=== PATIENT | female | born 1985 | race Caucasian/White ===

== ENCOUNTER 2017-01-10 17:21 | Inpatient (IN) | payer MEDICAID, OTHER ==
[~2017-01-10] VITALS: Ht 167.6 cm; Wt 65.5 kg
[2017-01-10 17:51] VITALS: BP 155/108; PULSE 82; RESP 18; O2SAT 100
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
[2017-01-10 19:25] LABS: BASOPHILS % (AUTO) 0.2 % (0-3); EOSINOPHILS % (AUTO) 0.4 % (0-5); MONOCYTES % (AUTO) 2.6 % (4-12); Mean Corpuscular Hemoglobin 31.3 pg (27.0-35.0); Mean Corpuscular Volume 92.7 fL (81-100); NEUTROPHILS % (AUTO) 84.8 % (40-74); Platelet Count 169 bil/L (150-400)
[2017-01-10] MEDS ORDERED: Midazolam 5 mg/mL 10 mL Inj IM ONE (20:11)
[2017-01-10] MEDS ORDERED: Haloperidol 5 mg/mL Inj IVPUSH ONE (20:45)
[2017-01-10] MEDS ORDERED: ACETYLCYSTEINE IV ONE ×2 (20:55→22:30)
[2017-01-10] MEDS ORDERED: DEXTROSE 5% IV ONE ×2 (20:55→22:30)
[2017-01-10] MEDS ORDERED: Acetadote Dosing per Pharmacy XX ONE (20:55)
[2017-01-10 21:33] VITALS: BP 119/83; PULSE 62; RESP 20; O2SAT 100
[2017-01-10] MEDS ORDERED: Ondansetron 2 mg/mL 2 mL Inj ONE (22:02)
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
[2017-01-10] MEDS ORDERED: Ondansetron 2 mg/mL 2 mL Inj IVPUSH PRN (23:05)
[2017-01-10] MEDS ORDERED: Alum-Mag Hydrox-Simeth 30 mL Suspension PO PRN (23:05)
[2017-01-10] MEDS ORDERED: Polyethylene Glycol (PEG) 17 Gm Powder PO PRN (23:05)
[2017-01-10 23:28] VITALS: BP 146/78; PULSE 67; RESP 19; O2SAT 99
--- NOTE | 2017-01-10 23:30 | NUR ---
Admission to [facility] Room 2010 Pt arrived on a gurney with a sitter at approximately 2330. Pt was able to transfer self from gurney to the bed with a steady gait and no c/o light headedness, dizziness, or weakness.
[2017-01-10 23:31] VITALS: PULSE 66
[2017-01-11 03:28] VITALS: BP 127/73; PULSE 58; RESP 14; O2SAT 100
[2017-01-11 04:59] LABS: BASOPHILS % (AUTO) 0.3 % (0-3); EOSINOPHILS % (AUTO) 0.5 % (0-5); MONOCYTES % (AUTO) 6.4 % (4-12); Mean Corpuscular Hemoglobin 30.9 pg (27.0-35.0); Mean Corpuscular Volume 93.1 fL (81-100); NEUTROPHILS % (AUTO) 67.3 % (40-74); Platelet Count 160 bil/L (150-400)
[2017-01-11] MEDS ORDERED: DEXTROSE 5% IV ONE (05:00)
[2017-01-11] MEDS ORDERED: ACETYLCYSTEINE IV ONE (05:00)
[2017-01-11 05:20] LABS: Magnesium 1.7 mg/dL (1.6-2.6); Phosphorus 2.9 mg/dL (2.5-4.9)
[2017-01-11 05:31] LABS: INR 1.13 ratio
[2017-01-11 06:05] VITALS: BP 119/75; PULSE 47; RESP 16; O2SAT 98
[2017-01-11] MEDS ORDERED: KCl 20 mEq/100 mL(CENTRAL) 20 MEQ in IV Premix 1 EACH IV ONE (06:45)
[2017-01-11 08:09] VITALS: BP 113/72; PULSE 46; RESP 18
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
[2017-01-11] MEDS ORDERED: Potassium Chloride Inj 20 MEQ in Dextrose 5% 250 ML IV ONE (08:35)
[2017-01-11 09:00] VITALS: PULSE 47
[2017-01-11] MEDS ORDERED: KCl 40 mEq/D5W 500 mL 40 MEQ in IV Premix 1 EACH IV ONE (10:35)
[2017-01-11 11:28] VITALS: BP 113/72; PULSE 46; RESP 16; O2SAT 98
[2017-01-11 15:30] VITALS: BP 120/82; PULSE 47; RESP 20; O2SAT 99
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
--- NOTE | 2017-01-11 15:51 | NUR ---
Social Work: Initial Assessment/Discharge D: Per EMR review, pt is a 31 year old female admited for acetaminophen overdose. Pt is [facility] HO insurance with [facility]; pt denies any LTC or VA benefits. PCP is through the [facility]. NOK is Barrett Dalton, pt's spouse, . Readmit score not entered. Advanced directives not completed- pt declined info from [employer]. Pt has been evaluated by psychiatry for an intentional overdose. SUPERVISOR [employer] received notification from plant senior manager that Dr. Cueva with psychiatry has cleared the patient to discharge home and to follow up with outpatient MH counseling. SUPERVISOR [employer] MILL met with the patient at bedside. Social work/dcp role explained, contact information and discharge planning checklist provided. Pt states she lives on [address] with her spouse and two children. The patient states that she is ready to discharge and denies any current suicidal ideation and states that her attempt was "stupid on my part." Pt mildly agitated during assessment and very eager to leave. Pt declined to include her significant other in discharge conversations and safety planning stating "its fine, I don't want to worry him about any of this." SUPERVISOR FEED MILL discussed topic of safety planning specifically seeing an outpatient provider for MH counseling as recommended by psychiatry. Pt states that she has never done counseling before but states that she intends to go to the [facility] to do so- the patient declined to have SUPERVISOR FE[employer] MILL assist her in making this appointment. SUPERVISOR FEED MILL provided her with a copy of the outpatient MH providers in [facility] and the information to Patient Access for [facility]/Medicaid. She understands that she will need to call or complete the online form before an appointment can be scheduled. Pt understands to return to the ED or nearest hospital if she begins to feel suicidal again; pt states she understands and will do this. Pt provided with the 24/ crisis line phone number. Pt denies any other needs that would help her to keep herself safe. A: Pt who is I at baseline. P: Anticipate pt to discharge home via POV and to follow up at the [facility] for outpatient mental health counseling. THERESA Marroquin
--- NOTE | 2017-01-11 16:22 | NUR ---
Discharge, potassium, safety plan Pt. insisted on discharge as soon as possible even though IV potassium was still infusing. Last potassium level was 3.3. Dr. Elliott was notified of pt.'s wish to be discharged as soon as possible without getting the full dose of IV potassium. Dr. Elliott advised that pt. should take OTC PO Potassium for 1 week after discharge. Pt. verbalized understanding. Discussed safety plan with pt. and family. Encourage pt. to use crisis hotline and resources given by [employer] if she needed help. Pt. verbalized that she will set up outpatient appointments with psych. and primary care provider. She denied suicidal ideation.
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
== END 2017-01-11 16:19 | disposition home or self-care (01) | DRG 918 ==
LOC: EDBD 17:21 → EDUNIT# 17:21 → SED 19:10 → PCC 22:16
PROVIDERS: ADMIT Hospitalist; ATTEND Internal Medicine
DX: T39.1X2A Poisoning by 4-Aminophenol derivatives, intentional self-harm, initial encounter (principal); S09.90XA Unspecified injury of head, initial encounter; F32.9 Major depressive disorder, single episode, unspecified; F43.23 Adjustment disorder with mixed anxiety and depressed mood; E87.6 Hypokalemia; Y35.93XA Legal intervention, means unspecified, suspect injured, initial encounter

== ENCOUNTER 2017-01-12 17:49 | Emergency (ER) | payer OTHER ==
[~2017-01-12] VITALS: Ht 167.6 cm; Wt 59.1 kg
[2017-01-12 18:01] VITALS: BP 145/79; PULSE 55; RESP 16; O2SAT 100
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
--- NOTE | 2017-01-12 22:01 | DRSVH ---
PROCEDURE: CT BRAIN WITHOUT CONTRAST ([id number]) INDICATIONS: headache, head trauma TECHNIQUE: Noncontrast 4.5 mm thick angled axial sections acquired from the foramen magnum to the vertex, with c oronal reformats. COMPARISON: None. FINDINGS: Image quality: Excellent. CSF spaces: Basal cisterns are patent. No extra-axial fluid collections. Ventricles are normal in size and shape. Brain: No midline shift. No intracranial masses or hemorrhage. Oglesby-white matter interface is norm al. Skull and face: Calvarium and visualized facial bones are intact, without suspicious lesions. Sinuses: Visualized sinuses and mastoids are clear. IMPRESSION: No acute intracranial findings. Dictated by: Francheska Benitez M.D. on 01/12/2017 at 21:56 Approved by: Francheska Benitez M.D. on 01/12/2017 at 22:00
== END 2017-01-12 22:48 | disposition home or self-care (01) ==
LOC: SED 17:49
DX: S09.8XXA Other specified injuries of head, initial encounter (principal); Y04.0XXA Assault by unarmed brawl or fight, initial encounter; Y93.89 Activity, other specified; Y92.89 Other specified places as the place of occurrence of the external cause; Y99.8 Other external cause status; F32.9 Major depressive disorder, single episode, unspecified; R11.0 Nausea; Z91.5 Personal history of self-harm; Z90.710 Acquired absence of both cervix and uterus